=== PATIENT | female | born 1945 | race Caucasian/White ===

== ENCOUNTER 2017-12-23 05:45 | Inpatient (IN) | payer OTHER, MEDICAID ==
[~2017-12-23] VITALS: Ht 165.1 cm; Wt 104.3 kg
--- NOTE | ~2017-12-23 | HEMODYNAMI ---
PATIENT:ELFEGO MONTEMAYOR MEDICAL RECORD: [id number] : 45 [id number] ADMISSION DATE: 12/23/17 Generatedon:12/30/201716:13 Patient name: ELFEGO MONTEMAYOR Patient #: [id number] SSN: : 1945 Date of study: 12/30/2017 Page: Of Hemodynamic Procedure Report Patient Data Patient Demographics Procedure consent was obtained First Name: ELFEGO Gender: Female Last Name: SIM : 1945 Middle Initial: S Age: 72 year(s) Patient #: [id number] Race: Unknown Additional ID: [id number] Contact details [address]: [address] [place] [address] State: [place] City: [place] Zip code: [address] Admission Admission Data Admission Date: 12/23/2017 Admission Time: 15:44 Room #: D.2212 Lab Results Lab Result Date: 12/30/2017 Lab Result Time: 0:00 Biochemistry Name Units Result Min Max BUN mg/dl 17 --(---*)-- 7 18 Creatinine mg/dl 0.8 --(-*--)-- 0.6 1.3 CBC Name Units Result Min Max Hemoglobin g/dl 9.5 *-(----)-- 13.5 17.5 Procedure Procedure Types Cath Procedure Diagnostic Procedure Sedation Charges Moderate Sedation up to 15 minutes [facility] w/Coronaries w/Grafts PCI Procedure Coronary Stent Coronary Stent Initial Procedure Description Procedure Date Procedure Date: 12/30/2017 Procedure Start Time: 15:43 Procedure End Time: 16:10 Procedure Staff Name Function Connor Wang MD Performing Physician Marcela Wyman RT Monitor Prasanna Caldera RN Nurse Rebecca Duran RT Scrub Procedure Data Cath Procedure Fluoroscopy Diagnostic fluoroscopy Total fluoroscopy Time: 5.5 time: 5.5 min min Diagnostic fluoroscopy Total fluoroscopy dose: dose: 1107 mGy 1107 mGy Contrast Material Contrast Material Type Amount (ml) Isovue 300 115 Entry Location Entry Primary Successful Side Size Upsize Upsize Entry Closure Succes sful Closure Location (Fr) 1 (Fr) 2 (Fr) Remarks Device Remarks Femoral Right 5 Fr 6 Fr artery Short Estimated blood loss: 5 ml Diagnostic catheters Device Type Used For End Catheter Placement MULTIPACK Pigtail 5 Fr LV Angiography catheter MULTIPACK JL 4.0 5Fr Left Coronary catheter Angiography MULTIPACK 3DRC 5Fr Right Coronary catheter Angiography DIAGNOSTIC AR 2 MOD 5 Fr Multi-vessel catheter ([id number]) Angiography Procedure Complications No complications Procedure Medications Medication Administration Route Dosage Oxygen NC 3 l/min Lidocaine 2% added to field 20 Heparin Flush Bag added to field 2 bags (1000units/500ml NS) 0.9% NaCl I.V. 100 ml/hr Versed I.V. 1 mg Fentanyl I.V. 50 mcg Versed I.V. 1 mg Fentanyl I.V. 50 mcg Heparin Bolus I.V. 4000 units Integrilin (Bolus I.V. 9.5 ml 2mg/ml) Plavix P.O. 600 mg Hemodynamics Rest HGB: 9.5 (g/dl) Heart Rate: 117 (bpm) Snapshots Pre Cath Intra NCS Post Cath Vital Signs Time Heart Resp SPO2 etCO2 NIBP (mmHg) Rhythm Pain Sedation Rate (ipm) (%) (mmHg) Status Level (bpm) 15:34:45 93 30 96 0 189/128(138) NSR 0 (11) 10(A) , No pain 15:40:13 104 17 93 0 178/131(165) NSR 0 (11) 10(A) , No pain 15:45:37 77 19 92 0 158/100(126) NSR 0 (11) 10(A) , No pain 15:49:44 114 18 94 0 160/119(133) NSR 0 (11) 10(A) , No pain 15:53:54 90 19 92 0 170/106(141) NSR 0 (11) 10(A) , No pain 15:58:06 83 19 93 0 169/100(133) NSR 0 (11) 10(A) , No pain 16:02:18 86 19 94 0 166/98(122) NSR 0 (11) 10(A) , No pain 16:08:39 116 21 92 0 Time NSR 0 (11) 10(A) Exceeded , No pain Medications Time Medication Route Dose Verified Delivered Reason Notes Effectiveness by by 15:36:05 Oxygen NC 3 Connor Buffie used for l/min Felipe Caldera RN procedure 15:36:13 Lidocaine 2% added 20ml Connor Connor for local to vial Felipe Wang MD anesthetic field 15:36:21 Heparin Flush added 2 Connor Connor used for Bag to bags Felipe Wang MD procedure (1000units/500ml field NS) 15:37:08 0.9% NaCl I.V. 100 Connor Buffie Per physician ml/hr Felipe Caldera RN 15:41:02 Versed I.V. 1 mg Connor Chanie for sedation Felipe Caldera RN 15:41:08 Fentanyl I.V. 50 Connor Buffie for sedation mcg Felipe Caldera RN 15:43:42 Versed I.V. 1 mg Connor Buffie for sedation Felipe Caledra RN 15:43:46 Fentanyl I.V. 50 Connor Chanie for sedation mcg Felipe Caldera RN 15:56:06 Heparin Bolus I.V. 4000 Connor Chanie for verifi ed units Felipe Caldera RN anticoagulation with dr wang 15:57:52 Integrilin I.V. 9.5 Connor Chanie for wasted (Bolus 2mg/ml) ml Felipe Caldera RN antiplatelet 0.5 ml therapy of vial 16:07:29 Plavix P.O. 600 Connor Chanie for mg Felipe Caldera RN antiplatelet therapy Procedure Log Time Note 15:25:33 Diagnostic Cath status Elective 15:25:35 Marcela Wyman RT(R) sent for patient. Start room use. 15:25:37 Time tracking: Regular hours 15:25:41 Plan of Care:Hemodynamics will remain stable., Cardiac rhythm will remain stable., Comfort level will be maintained., Respiratory function will remain adequate., Patient/ family verbilizes understanding of procedure., Procedure tolerated without complication., Recovers from procedure without complications.. 15:25:50 Patient received from Med/Surg to CCL 2 Alert and oriented. Tansferred to table in Supine position. 15:25:51 Warm blankets applied, and renny hugger turned on for patient comfort. 15:25:53 Correct patient and procedure confirmed by team. 15:25:55 Signed procedure consent form obtained from patient. 15:26:04 H&P Date Dictated: 12/29/2017 Within 30 days and on chart.. 15:26:06 Pre-procedure instructions explained to patient. 15:26:08 Family in patients room. 15:26:10 Patient NPO since Midnight. 15:26:14 Is the patient allergic to Iodine/contrast media? No. 15:26:18 Was the patient premedicated? Yes 15:26:37 Is patient on blood thinner?Yes 15::42 ACC The patient was administered the following blood thiners within the last 24 hours: Eliquis 15:26:45 Patient diabetic? Yes. 15:26:46 If diabetic: On Metformin? No 15::54 Snore? Yes 15::55 Sleep apnea? Yes 15:27:00 Airway obstruction? No ? 15:27:05 Dentures? Yes tight 15:27:08 Patient pain scale 0/10 ?. 15:27:16 IV patent on arrival in left forearm with 0.9% NaCl at O. 15:27:27 Lab results completed and on chart. 15:27:33 Right groin area was prepped with chlora-prep and draped in sterile fashion 15:27:35 Alarms reviewed by R. N. 15:27:35 Sharps counted by scrub and verified by R.N. 15:27:38 Physician paged 15:27:46 ECG and BP/O2 sat monitors applied to patient. 15:33:40 Vital chart was started 15:33:41 Baseline sample Acquired. 15:33:48 Rhythm: atrial fibrillation 15:33:50 Full Disclosure recording started 15:33:51 Pre-op teaching completed and patient verbalized understanding. 15:33:59 Deviated septum? No 15:34:00 Opens mouth fully? Yes 15:34:00 Sticks out tongue? Yes 15:34:20 Lab Result : BUN 17 mg/dl 15:34:20 Lab Result : Creatinine 0.8 mg/dl 15:34:20 Lab Result : Hemoglobin 9.5 g/dl 15:36:05 Oxygen 3 l/min NC was administered by Prasanna Caldera RN; used for procedure; 15:36:13 Lidocaine 2% 20ml vial added to field was administered by Connor Wang MD; for local anesthetic; 15:36:21 Heparin Flush Bag (1000units/500ml NS) 2 bags added to field was administered by Connor Wang MD; used for procedure; 15:37:08 0.9% NaCl 100 ml/hr I.V. was administered by Prasanna Caldera RN; Per physician; 15:40:38 Physician arrived 15:40:39 --------ALL STOP TIME OUT------ 15:40:39 Final Timeout: patient, procedure, and site verified with staff and physician. All members of the team are in agreement. 15:40:42 Right groin site verified by team. 15:40:44 Physical assessment completed. ASA score P 2 - A patient with mild systemic disease as per Connor Wang MD. 15:40:48 Sedation plan: IV Moderate Sedation Medication:Versed, Fentanyl 15:40:57 Use device set Femoral Dx 15:40:58 ACIST Syringe (53650) opened to sterile field. 15:40:58 Bag Decanter (2002S) opened to sterile field. 15:40:58 Medline Cath Pack ([id number]) opened to sterile field. 15:40:59 SHEATH 5FR Mcdonough (BCH304) opened to sterile field. 15:40:59 DIAGNOSTIC WIRE .035 260cm J wire (032130) opened to sterile field. 15:41:01 ACIST Hand Control (92017) opened to sterile field. 15:41:01 ACIST Manifold (77969) opened to sterile field. 15:41:02 Versed 1 mg I.V. was administered by Prasanna Caldera RN; for sedation; 15:41:02 DIAGNOSTIC Multipack 5Fr catheter set (UW9927) opened to sterile field. 15:41:02 Tegaderm 4 x 4 (1626W) opened to sterile field. 15:41:08 Fentanyl 50 mcg I.V. was administered by Prasanna Caldera RN; for sedation; 15:41:22 Quick Combo opened to sterile field. 15:43:24 Quick combo pads placed on patients chest and back. 15:43:32 Procedure started. 15:43:42 Versed 1 mg I.V. was administered by Prasanna Caldera RN; for sedation; 15:43:46 Fentanyl 50 mcg I.V. was administered by Prasanna Caldera RN; for sedation; 15:43:47 Local anesthetic to right femoral artery with Lidocaine 2% by Connor Wang MD.INITIAL ACCESS ONLY 15:46:05 A 5 Fr sheath was inserted into the Right Femoral artery 15:46:18 A MULTIPACK Pigtail 5 Fr catheter was advanced over the wire and used for LV Angiography. 15:47:58 unable to cross artificial valve; catheter removed 15:48:04 A MULTIPACK JL 4.0 5Fr catheter was advanced over the wire and used for Left Coronary Angiography. 15:48:50 LCA angiography performed. 15:48:53 Injector settings: Ml/sec: 3, Volume: 6, 15:49:31 Catheter removed. 15:49:37 A MULTIPACK 3DRC 5Fr catheter was advanced over the wire and used for Right Coronary Angiography. 15:50:32 GASTON angiography performed. 15:51:03 SHEATH 6FR Mcdonough (SDH519) opened to sterile field. 15:51:03 INFLATOR Merit BasixCompak (XF5995) opened to sterile field. 15:51:04 CHOICE PT Extra Support 182cm wire ([id number]) opened to sterile field. 15:51:59 Injector settings: Ml/sec: 3, Volume: 6, 15:54:14 Catheter removed. 15:54:19 A DIAGNOSTIC AR 2 MOD 5 Fr catheter (359373E) was advanced over the wire and used for Multi-vessel Angiography. 15:54:52 SVG to Diag angiography performed. 15:54:58 SVG to RCA angiography performed. 15:55:02 Catheter removed. 15:55:04 Proceeding to intervention. 15:55:18 Sheath upsized to a 6 Fr Short. 15:55:47 GUIDE 6FR XBLAD 4.0 catheter ([id number]) opened to sterile field. 15:56:00 6 Fr xblad 4 guide catheter was inserted over the wire 15:56:05 choice pt wire advanced. 15:56:06 Heparin Bolus 4000 units I.V. was administered by Prasanna Caldera RN; for anticoagulation; verified with dr wang 15:57:52 Integrilin (Bolus 2mg/ml) 9.5 ml I.V. was administered by Prasanna Caldera RN; for antiplatelet therapy; wasted 0.5 ml of vial 15:58:24 Wire advanced across lesion. 15:59:48 Inflation number: 1 A INTEGRITY RX 4.0 x 09 stent ([id number]) was prepped and advanced across the Prox CX, then inflated to 13 KARYN for 0:10 (min:sec). 16:00:32 Stent catheter was removed intact over wire. 16:00:32 Wire removed. 16:00:32 Guide catheter removed. 16:00:49 EXOSEAL 6Fr (EX600) opened to sterile field. 16:05:17 Procedure ended.(Physican Out) 16:07:29 Plavix 600 mg P.O. was administered by Prasanna Caldera RN; for antiplatelet therapy; 16:07:48 Fluoroscopy time 05.50 minutes. 16:07:53 Fluoroscopy dose: 1107 mGy 16:07:53 Flurop Dose total: 1107 16:07:57 Contrast amount:Isovue 300 115ml. 16:07:59 Sharps counted by scrub and verified by R.N. 16:08:01 Insertion/operative site no bleeding no hematoma. 16:08:04 Post-op/insertion site Right Femoral artery dressed using a 4 x 4 and Tegaderm. 16:08:07 Post right femoral artery:stable 16:08:10 Post Procedure Pulses reassessed and unchanged 16:08:12 Post procedure rhythm: unchanged. 16:08:15 Estimated blood loss: 5 ml 16:08:16 Post procedure instruction explained to patient.Patient verbalizes understanding. 16:08:16 Patient needs reinforcement of post procedure teaching. 16:08:38 Procedure type changed to Cath procedure, Diagnostic procedure, Sedation Charges, Moderate Sedation up to 15 minutes, LHC, LHC w/Coronaries w/Grafts, PCI procedure, Coronary Stent, Coronary Stent Initial 16:09:26 Procedure and supply charges have been captured, reviewed, submitted and are correct. 16:09:30 Procedure Complication : No complications 16:09:57 Vital chart was stopped 16:09:58 See physician's report for complete and final results. 16:10:22 Report given to [facility]. 16::30 Patient transfered to [facility] with Stretcher. 16::32 Procedure ended. 16::32 Full Disclosure recording stopped 16:10:39 ACC-PCI Only Patient was given prescriptions, or instructed by Connor Wang MD to start/continue the following medications upon discharge: Plavix 16:10:41 End room use (Document Last) Intervention Summary Intervention Notes Time ActionType Lesion and Equipment Action# Pressure Duration Attributes Used 15:59:48 Inflate Prox CX INTEGRITY RX 1 13 00:10 balloon 4.0 x 09 stent ([id number]) Device Usage Item Name Manufacture Quantity Catalog Number Hospital Part Current Mini mal Lot# / Charge Number Stock Stock Serial# Code ACIST Acist 1 09839 731414 104213 938743 20 Syringe Medical (50197) Systems Inc Bag Decanter Microtek 1 2001S 266816 52365 646919 5 (2001S) Medical Inc. Medline Cath Cardinal 1 [id number] 583822 07669 948235 5 Pack Health ([id number]) SHEATH 5FR Terumo 1 VLX129 378093 129761 007993 40 Mcdonough (FUR366) DIAGNOSTIC St Shaq 1 514337 648965 594040 764130 30 WIRE .035 260cm J wire (910557) ACIST Hand Acist 1 46901 042999 333387 137894 5 Control Medical (05393) Systems Inc ACIST Acist 1 42111 622100 403272 684540 5 Manifold Medical (98897) Systems Inc DIAGNOSTIC Cardinal 1 WF4011 781425 80268 325704 30 Multipack Health 5Fr catheter set (PJ0405) Tegaderm 4 x 3M 1 1626W 628847 474385 947628 5 4 (1626W) Quick Combo Edge Systems 1 43983-983139 881720 204634 462220 5 MULTIPACK Cardinal 1 914669 5 Pigtail 5 Fr Health catheter MULTIPACK JL Cardinal 1 016825 5 4.0 5Fr Health catheter MULTIPACK Cardinal 1 264046 5 3DRC 5Fr Health catheter SHEATH 6FR Terumo 1 YQJ153 628448 246670 345556 40 Mcdonough (JHB785) INFLATOR Merit 1 JK1311 355695 771288 885365 15 TOSA (Tests On Software Applications) Medical BasixCompak (BG3024) CHOICE PT Chester 1 [id number] 844299 225814 481690 5 Extra Scientific Support 182cm wire (3051287Y0) DIAGNOSTIC Cardinal 1 [id number] 466241 318609 636960 20 AR 2 MOD 5 Health Fr catheter (828634G) GUIDE 6FR Cardinal 1 [id number] 718139 064306 632051 3 XBLAD 4.0 Health catheter (76028955) INTEGRITY RX Medtronic 1 [id number] 527965 767568 573955 5 [id number] 4.0 x 09 stent ([id number]) EXOSEAL 6Fr Cardinal 1 EX600 764165 689792 767591 10 (EX600) Health Signature Audit [place] Stage Time Signature Unsigned Intra-Procedure 12/30/2017 Marcela Wyman 4:12:59 PM RT(R) Signatures Monitor : Marcela Wyman RT Signature : Date : Time : [place] [id number] [facility] [address]
--- NOTE | ~2017-12-23 | HEMODYNAMI ---
PATIENT:ELFEGO MONTEMAYOR MEDICAL RECORD: [id number] : 45 LOCATION:[facility] D.2110 ADMISSION DATE: 12/23/17 Generatedon:12/31/20179:36 Patient name: ELFEGO MONTEMAYOR Patient #: [id number] SSN: : 1945 Date of study: 12/31/2017 Page: Of Hemodynamic Procedure Report Patient Data Patient Demographics Procedure consent was obtained First Name: ELFEGO Gender: Female Last Name: SIM : 1945 Middle Initial: S Age: 72 year(s) Patient #: [id number] Race: Unknown Additional ID: [id number] Contact details [address]: [address] [place] [address] State: [place] City: [place] Zip code: [address] Past Medical History Allergies Allergen Reaction Date Comments Reported Other allergy 12/31/2017 SULFA, CODEINE Admission Admission Data Admission Date: 12/23/2017 Admission Time: 15:44 Room #: D.2110 Lab Results Lab Result Date: 12/31/2017 Lab Result Time: 0:00 Biochemistry Name Units Result Min Max BUN mg/dl 14 --(--*-)-- 7 18 Creatinine mg/dl 0.7 --(*---)-- 0.6 1.3 CBC Name Units Result Min Max Hemoglobin g/dl 9.9 *-(----)-- 13.5 17.5 Platelets 10^3/l 277 --(--*-)-- 130 400 Procedure Procedure Types Cath Procedure Diagnostic Procedure Cardioversion External PCI Procedure AMI/SVG/OVERHEAD IRRIGATOR PTCA or Stent SVG-BMS/SACHIN Initial Procedure Description Procedure Date Procedure Date: 12/31/2017 Procedure Start Time: 9:16 Procedure End Time: 9:35 Procedure Staff Name Function Connor Wang MD Performing Physician Lizzie Luke RT Monitor Alma Rosa Soriano RT Scrub Prasanna Caldera RN Nurse Doug Kline MD Additional personnel Procedure Data Cath Procedure Fluoroscopy Diagnostic fluoroscopy Total fluoroscopy Time: 2.6 time: 2.6 min min Diagnostic fluoroscopy Total fluoroscopy dose: 263 dose: 263 mGy mGy Contrast Material Contrast Material Type Amount (ml) Isovue 300 60 Entry Location Entry Primary Successful Side Size Upsize Upsize Entry Closure Succes sful Closure Location (Fr) 1 (Fr) 2 (Fr) Remarks Device Remarks Femoral Left 6 Fr Exoseal artery Short Estimated blood loss: 10 ml Procedure Complications No complications Procedure Medications Medication Administration Route Dosage Oxygen NC 2 l/min Lidocaine 2% added to field 20 Heparin Flush Bag added to field 2 bags (1000units/500ml NS) 0.9% NaCl I.V. 100 ml/hr Versed I.V. 0.5 mg Fentanyl I.V. 50 mcg Versed I.V. 0.5 mg Fentanyl I.V. 50 mcg Heparin Bolus I.V. 4000 units Hemodynamics Rest HGB: 9.9 (g/dl) Heart Rate: 126 (bpm) Snapshots Pre Cath Intra NCS Post Cath Vital Signs Time Heart Resp SPO2 etCO2 NIBP (mmHg) Rhythm Pain Sedation Rate (ipm) (%) (mmHg) Status Level (bpm) 8:54:26 98 28 92 209/131(161) A-Fib 0 (11) 10(A) , No pain 8:59:08 101 22 94 200/121(148) A-Fib 0 (11) 10(A) , No pain 9:03:45 85 23 94 185/119(166) A-Fib 0 (11) 10(A) , No pain 9:08:25 79 16 92 17.9 185/109(145) A-Fib 0 (11) 9(A) , No pain 9:10:10 78 16 95 0 183/109(136) A-Fib 0 (11) 9(A) , No pain 9:14:50 79 15 98 0 179/86(123) Paced 0 (11) 9(A) , No pain 9:19:31 61 13 96 0 157/84(115) Paced 0 (11) 9(A) , No pain 9:24:08 60 16 95 0 160/86(129) Paced 0 (11) 10(A) , No pain 9:28:46 65 13 93 0 171/81(124) Paced 0 (11) 10(A) , No pain 9:33:27 64 14 0 175/82(149) Paced 0 (11) 10(A) , No pain Medications Time Medication Route Dose Verified Delivered Reason Notes Effectiveness by by 9:03:03 Oxygen NC 2 Connor Rocioie used for l/min Felipe Caldera RN procedure 9:03:13 Lidocaine 2% added 20ml Connormorena Ryan for local to vial Felipe Wang MD anesthetic field 9:03:19 Heparin Flush added 2 Connormorena Ryan used for Bag to bags Felipe Wang MD procedure (1000units/500ml field NS) 9:03:28 0.9% NaCl I.V. 100 Connor Mims Per physician ml/hr Felipe Caldera RN 9:15:16 Versed I.V. 0.5 oCnnor Cahnie for sedation mg Felipe Caldera RN 9:15:21 Fentanyl I.V. 50 Connor Buffie for sedation mcg Felipe Caldera RN 9:17:25 Versed I.V. 0.5 Connor Chanie for sedation mg Felipe Caldera RN 9:17:29 Fentanyl I.V. 50 Connor Mims for sedation mcg Felipe Caldera RN 9:18:34 Heparin Bolus I.V. 4000 Connormorena Chanie for units Felipe Caldera RN anticoagulation Procedure Log Time Note 8:33:53 Prasanna Caldera RN sent for patient. Start room use. 8:33:54 Time tracking: Regular hours 8:33:57 Plan of Care:Hemodynamics will remain stable., Cardiac rhythm will remain stable., Comfort level will be maintained., Respiratory function will remain adequate., Patient/ family verbilizes understanding of procedure., Procedure tolerated without complication., Recovers from procedure without complications.. 8:33:59 Signed procedure consent form obtained from patient. 8:34:11 H&P Date Dictated: 12/23/2017 Within 30 days and on chart.. 8:37:31 Patient allergic to Other allergySULFA, CODEINE 8:38:14 Lab Result : BUN 14 mg/dl 8:38:14 Lab Result : Creatinine 0.7 mg/dl 8:38:14 Lab Result : Hemoglobin 9.9 g/dl 8:38:14 Lab Result : Platelets 277 10^3/l 8:43:00 Patient received from PCU to CCL 1 Alert and oriented. Tansferred to table in Supine position. 8:52:56 Vital chart was started 8:56:07 Warm blankets applied, and renny hugger turned on for patient comfort. 8:56:08 Correct patient and procedure confirmed by team. 8:56:10 Baseline sample Acquired. 8:56:16 Rhythm: atrial fibrillation 8:56:18 Full Disclosure recording started 8:56:19 Pre-procedure instructions explained to patient. 8:56:19 Pre-op teaching completed and patient verbalized understanding. 8:56:20 Family in patients room. 8:56:21 Patient NPO since Midnight. 8:56:25 Is the patient allergic to Iodine/contrast media? No. 8:56:28 Is patient on blood thinner?Yes 8:56:31 ACC The patient was administered the following blood thiners within the last 24 hours: ACCPlavix 8:56:32 Patient diabetic? Yes. 8:56:33 If diabetic: On Metformin? No 8:56:37 Previous problem with sedation/anesthesia? No ? 8:56:38 Snore? Yes 8:56:39 Sleep apnea? Yes 8:56:40 Deviated septum? No 8:56:42 Opens mouth fully? Yes 8:56:43 Sticks out tongue? Yes 8:59:06 Airway obstruction? No ? 8:59:10 Dentures? Yes OUT 8:59:14 Pre procedure: left dorsailis pedis pulse 1+ Palpable, but thready & weak; easily obliterated 8:59:18 Patient pain scale 6/10 ?. 8:59:29 IV patent on arrival in left forearm with 0.9% NaCl at KVO. 8:59:31 Lab results completed and on chart. 8:59:34 Left groin area was prepped with chlora-prep and draped in sterile fashion 8:59:35 Alarms reviewed by R. N. 8:59:35 Sharps counted by scrub and verified by R.N. 9:01:00 Use device set CATH PACK 9:01:03 Use device set TAUTH PCI 9:01:04 ACIST Syringe (12611) opened to sterile field. 9:01:04 ACIST Hand Control (37364) opened to sterile field. 9:01:05 ACIST Manifold (57548) opened to sterile field. 9:01:05 Medline Cath Pack ([id number]) opened to sterile field. 9:01:06 Bag Decanter (2002S) opened to sterile field. 9:01:07 DIAGNOSTIC WIRE .035 260cm J wire (837437) opened to sterile field. 9:01:08 INFLATOR Merit Stephaniepak (AR9474) opened to sterile field. 9:01:08 SHEATH 6FR Oreana (UEB829) opened to sterile field. 9::18 Quick Combo opened to sterile field. 9:03:03 Oxygen 2 l/min NC was administered by Prasanna Caldera RN; used for procedure; 9:03:13 Lidocaine 2% 20ml vial added to field was administered by Connor Wang MD; for local anesthetic; 9::19 Heparin Flush Bag (1000units/500ml NS) 2 bags added to field was administered by Connor Wang MD; used for procedure; 9::28 0.9% NaCl 100 ml/hr I.V. was administered by Prasanna Caldera RN; Per physician; 9:04:06 --------ALL STOP TIME OUT------ 9:04:06 Final Timeout: patient, procedure, and site verified with staff and physician. All members of the team are in agreement. 9:04:09 Left groin site verified by team. 9:04:13 Physical assessment completed. ASA score P 2 - A patient with mild systemic disease as per Connor Wang MD. 9:04:16 Sedation plan: TIVA Medication:Propofol 9:04:18 Doug Kline MD present and monitoring patient for TIVA. 9:05:00 Procedure started. 9:06:43 Quick combo pads placed on patients chest and back. 9:06:46 Defibrillator synced and charged to 275 Joules. 9:07:02 Shock delivered. 9:07:33 Patient cardioverted to paced. 9:08:35 WILL PROCEED WITH HEART CATH 9:08:41 Zero performed for pressure channel P1 9:08:55 Zero performed for pressure channel P1 9:10:40 GUIDE 6FR AR 1.0 catheter ([id number]) opened to sterile field. 9:11:20 CHOICE PT Extra Support 182cm wire ([id number]) opened to sterile field. 9:15:16 Versed 0.5 mg I.V. was administered by Prasanna Caldera RN; for sedation; 9:15:21 Fentanyl 50 mcg I.V. was administered by Prasanna Caldera RN; for sedation; 9:16:06 LEFT HEART CATH START 9:16:26 Local anesthetic to left femerol artery with Lidocaine 2% by Connor Wang MD.INITIAL ACCESS ONLY 9:17:22 A 6 Fr Short sheath was inserted into the Left Femoral artery 9:17:25 Versed 0.5 mg I.V. was administered by Prasanna Caldera RN; for sedation; 9:17:29 Fentanyl 50 mcg I.V. was administered by Prasanna Caldera RN; for sedation; 9:17:42 6 Fr AR 1 guide catheter was inserted over the wire 9:18:14 CHOICE 182 wire advanced. 9:18:34 Heparin Bolus 4000 units I.V. was administered by Prasanna Caldera RN; for anticoagulation; 9:19:08 Wire advanced across lesion. 9:21:22 Inflation Number: 1 A INTEGRITY RX 3.0 x 15 stent ([id number]) was prepped and advanced across the Aorta Left -> Mid LAD. The stent was deployed at 15 KARYN for 0:10 (min:sec). 9:21:51 Stent catheter was removed intact over wire. 9:21:52 Wire removed. 9:21:52 Guide catheter removed. 9:21:55 EXOSEAL 6Fr (EX600) opened to sterile field. 9:22:07 Sheath removed intact; hemostasis achieved with Exoseal to the Left Femoral artery. 9:22:47 Procedure ended.(Physican Out) 9:25:34 Fluoroscopy time 02.60 minutes. 9::48 Flurop Dose total: 263 9:25:48 Fluoroscopy dose: 263 mGy 9:25:51 Contrast amount:Isovue 300 60ml. 9:26:14 Post-procedure physical assessment completed. ASA score P 2 - A patient with mild systemic disease as per Connor Wang MD. 9:26:24 Post procedure rhythm: sinus rhythm 9::27 Estimated blood loss: 10 ml 9::29 Post procedure instruction explained to patient.Patient verbalizes understanding. 9::29 Patient needs reinforcement of post procedure teaching. 9:32:27 FEMSTOP Gold ([id number]) opened to sterile field. 9:32:43 Femstop placed over the left femerol artery at 214 mmHg. Hemostasis achieved. 9:32:46 Post Procedure Pulses reassessed and unchanged 9:32:51 Post procedure: left dorsailis pedis pulse 1+ Palpable, but thready & weak; easily obliterated. 9:34:47 PERCUTANEOUS ENTRY 19GA needle opened to sterile field. 9:35:39 Procedure and supply charges have been captured, reviewed, submitted and are correct. 9:35:42 Procedure Complication : No complications 9:35:44 Vital chart was stopped 9:35:45 See physician's report for complete and final results. 9:35:48 Report given to PCU. 9:35:53 Patient transfered to PCU with Bed. 9:35:55 Procedure ended. 9:35:55 Full Disclosure recording stopped 9:36:01 End room use (Document Last) Intervention Summary Intervention Notes Time ActionType Lesion and Equipment Action# Pressure Duration Attributes Used 9:21:22 Place stent Aorta Left INTEGRITY RX 1 15 00:10 -> Mid LAD 3.0 x 15 stent ([id number]) Device Usage Item Name Manufacture Quantity Catalog Number Hospital Part Current Mini mal Lot# / Charge Number Stock Stock Serial# Code ACIST Acist 1 50901 484761 318321 603931 20 Syringe Medical (73971) Systems Inc ACIST Hand Acist 1 41460 905143 129088 758397 5 Control Medical (15797) Systems Inc ACIST Acist 1 43164 174758 001515 400922 5 Manifold Medical (98325) Systems Inc Medline Cath Cardinal 1 [id number] 360687 95222 980128 5 Pack Health ([id number]) Bag Decanter Microtek 1 2001S 831895 82779 853760 5 (2001S) Medical Inc. DIAGNOSTIC St Shaq 1 469667 019924 892551 662340 30 WIRE .035 260cm J wire (238042) INFLATOR ShieldEffect 1 KB0334 366753 034383 702952 15 CloudGenix BasixCompak (EJ8083) SHEATH 6FR Terumo 1 PAC033 414804 997902 328389 40 Oreana (ENS662) Quick Combo Netfective Technology Systems 1 22027-600063 943833 054189 501858 5 GUIDE 6FR AR Medtronic 1 [id number] 881255 91531 462504 1 1.0 catheter (LT8DA21) CHOICE PT [place] 1 [id number] 877251 815667 631654 5 Extra Scientific Support 182cm wire ([id number]) INTEGRITY RX Medtronic 1 [id number] 409136 002799 564911 5 [id number] 3.0 x 15 stent ([id number]) EXOSEAL 6Fr Cardinal 1 EX600 267308 844284 597198 10 (EX600) Health FEMSTOP Gold St Shaq 1 H54258 957722 635904 798170 5 (V38122) PERCUTANEOUS [place] [facility] 1 J75092 761607 592173 5 ENTRY 19GA needle Signature Audit [place] Stage Time Signature Unsigned Intra-Procedure 12/31/2017 Lizzie Luke 9:36:33 AM RT(R) Signatures Monitor : Lizzie Luke Signature : RT Date : Time : [address] [address]
--- NOTE | ~2017-12-23 | CN ---
PATIENT NAME:ELFEGO MONTEMAYOR MEDICAL RECORD: [id number] : 45 LOCATION:D.M2 D.2110 ADMIT DATE: 12/23/17 ACCOUNT: [id number] CONSULTING PHYSICIAN: LUCIA ELLIS MD REFERRING PHYSICIAN: LEONIDAS BYRD MD DATE OF CONSULTATION: 12/29/2017 DIAGNOSES: 1. New onset atrial fibrillation. 2. Past history of atrial fibrillation. 3. Status post cardioversion times 2. 4. Status post ablation times 2. 5. Aortic valve replacement tissue. 6. Coronary artery disease. 7. Status post coronary bypass graft surgery. 8. Unstable angina. 9. Anemia. 10. Eliquis anticoagulation. 11. Hypertension. 12. Hyperlipidemia. 13. Chronic obstructive pulmonary disease. HISTORY OF PRESENT ILLNESS: Mrs. Montemayor presents with generalized weakness. She is status post knee replacement in [facility] last week. She cannot take care of herself at home. She has an extensive cardiac history. She was initially in sinus rhythm. She is now reverted to atrial fibrillation. She was previously on Cordarone, which has not been continued here. She as well is on valsartan, carvedilol, Zetia and Eliquis. These have been continued. Her cardiac history is that of a coronary bypass graft surgery, valve replacement with a tissue prosthesis and pacemaker placed 2015. She had an ablation in 2016 secondary to atrial fibrillation as well as cardioversion. She then had recurrent atrial fibrillation with recurrent ablation and cardioversion last year. She has been having chest pain and chest discomfort. She has ST-T changes with the rapid ventricular response. PHYSICAL EXAMINATION: GENERAL APPEARANCE: Well-nourished, well-developed, appears stated age. Level of distress, comfortable. PSYCHIATRIC: Mental status, alert, normal affect. Orientation, oriented to time, place and person. EYES: Lids and conjunctiva, noninjected. No discharge, no pallor. ENT: Lips, teeth, gums, normal dentition. Oropharynx, no cyanosis, no pallor. NECK: Carotid arteries, bilateral normal upstroke, no bruits, no thrills. JUGULAR VEINS: No jugular venous pressure or distention. CERVICAL LYMPH NODES: Nontender, nonenlarged. THYROID: Not enlarged. Nontender. No nodules. LUNGS: Respiratory effort, unlabored. CHEST: Normal curvature. No thoracic deformity. No chest wall tenderness. Percussion, resonant. Auscultation, clear. No wheezes, no rales, no rhonchi. CARDIOVASCULAR: Precordial exam, nondisplaced. No heaves or pericardial thrills. Rate and rhythm, regular. Heart sounds, normal S1, normal S2. No S3, no gallop, no rub. Systolic murmur, not heard. Diastolic murmur, not heard. EXTREMITIES: No cyanosis, no edema. Peripheral pulses, full and equal in all extremities, except as noted. No bruits appreciated. ABDOMEN: Soft, nondistended. Normal aorta. No bruit. Nontender. No masses. CONSULT REPORT [id number] ELFEGO MONTEMAYOR Liver, nontender, no hepatomegaly. Spleen, nontender, no splenomegaly. MUSCULOSKELETAL: No joint tenderness. No joint swelling. No erythema. NEUROLOGICAL: Normal gait, normal strength, normal tone. SKIN: Warm and dry. OVERALL IMPRESSION: 1. Atrial fibrillation with rapid ventricular response. We will start her on Cordarone at 400 mg b.i.d. We will also give her diltiazem bolus. Hopefully, this will slow her down and possibly convert her back to sinus rhythm. 2. Unstable angina, most likely she has recurrent hemodynamically significant coronary artery disease, especially with the ST-T changes with chest pain and the atrial fibrillation. We will proceed with coronary angiography in the near future. If she does not back to sinus rhythm, we will as well do cardioversion at that time. She is anticoagulated on Eliquis at this time. TRANSINT:[id number] Voice Confirmation ID: [id number] DOCUMENT ID: [id number] LUCIA ELLIS MD at 1153 CC: [id number] DICTATION DATE: 12/29/17 1101 INPATIENT NURSING AIDE: 12/29/17 1113 ADM IN [facility] [address] [place] [address]
--- NOTE | ~2017-12-23 | OP ---
PATIENT NAME: ELFEGO MONTEMAYOR MEDICAL RECORD: [id number] :45 LOCATION:D.M2 D.2110 ADMISSION DATE:12/23/17 SURGEON: LUCIA ELLIS MD DATE OF OPERATION: 12/30/2017 PROCEDURES: 1. PTCA stent, left circumflex. 2. Left heart catheterization. 3. Selective coronary angiography. 4. Vein graft angiography. 5. GASTON angiography. INDICATION: Angina and coronary artery disease. PROCEDURE IN DETAIL: After informed consent was obtained and after a detailed explanation of risks, benefits as well as alternative therapies, the patient elected to proceed with angiogram and angioplasty. The right femoral area was prepped and draped in normal sterile fashion. The right femoral artery was cannulated via modified Seldinger technique with placement of 6-Portuguese sheath. All catheters exchanged through this sheath. FINDINGS: Left ventriculogram was not performed secondary to inability to cross the prosthetic aortic valve. SELECTIVE CORONARY ANGIOGRAPHY: 1. Left main showed no significant angiographic disease. 2. Left anterior descending has 90% stenosis proximally. 3. GASTON to the LAD is widely patent. 4. Vein graft to the LAD diagonal is patent; however, the LAD diagonal has 80-90% stenosis after the patent vein graft. 5. The left circumflex does not appear to be grafted. There is 95% stenosis at the ostium. 6. Right coronary is grafted. Distal right coronary artery is widely patent as is the graft. PTCA STENT OF THE CIRCUMFLEX: The stent used was a 4.0 x 9 mm Integrity stent. Result was 0% residual stenosis. OVERALL IMPRESSION: Successful percutaneous transluminal coronary angioplasty stent of the left circumflex going from 95% initial stenosis to 0% residual. PLAN: PTCA stent of the LAD diagonal after the patent vein graft in the near future. TRANSINT:[id number] Voice Confirmation ID: [id number] DOCUMENT ID: [id number] LUCIA ELLIS MD at 1153 CC: [id number] DICTATION DATE: 12/30/17 1610 ALTERATION SPECIALIST: 12/30/17 1702 [place] [address]
--- NOTE | ~2017-12-23 | EC ---
PATIENT:ELFEGO MONTEMAYOR DATE OF SERVICE: 12/23/17 SEX: F MEDICAL RECORD: [id number] DATE OF : 45 LOCATION:D.MS [facility] AGE OF PATIENT: 72 ADMISSION DATE: 12/23/17 REFERRING PHYSICIAN: INTERPRETING PHYSICIAN: LUCIA WANG MD ECHOCARDIOGRAM REPORT ECHO CHARGES 4 ECHO COMPLETE CLINICAL DIAGNOSIS: A-FIB H/O AVR ECHOCARDIOGRAPHIC MEASUREMENTS (adult normal given) AC root (d.<3.7cm) 2.5 cm LV Septum d (<1.2 cm> 1.8 cm Valve Excursion 1.4 cm LV Septum (systole) 2.7 cm Left Atria (s.<4.0cm> 5.3 cm LVPW d(<1.2cm) 1.7 cm RV (d.<2.3cm) 2.8 cm LVPW (sytole) 2.6 cm LV diastole(<5.6CM) 4.5 cm MV E-F(>70mm/sec) cm LV systole 2.5 cm LVOT Diameter 1.6 cm MV exc.(>10mm) cm Est.ejection fraction (50-75%) % Pericardial Effusion N DOPPLER: LVIT cm/sec A cm/sec E 185 cm/sec LA cm/sec RVSP 22.3 mmHg LVOT 147 cm/sec AOP1/2T m/s Asc. Ao 159 cm/sec RVOT 100 cm/sec RA cm/sec PA 77.0 cm/sec AV Gradient Peak 10.1 mmHg AV Mean 5.4 mmHg AV Area 1.9 cm MV Gradient Peak 21.0 mmHg MV Mean 6.5 mmHg MV Area 0.8 cm COMMENTS: Intelligent Systems Engineer: Herlinda LOPEZOE Lag Screwer: 1 Dr. Wang TAPE# PACS DATE OF SERVICE: 12/29/2017 Echocardiogram FINDINGS: 1. Left ventricular chamber size is within normal limits. Left ventricular systolic function is mild to moderately reduced, ejection fraction in the 35% range. 2. Left atrium is enlarged at 5.3 cm. Right atrium and right ventricular chamber sizes are within normal limits. ECHOCARDIOGRAM REPORT [id number] ELFEGO MONTEMAYOR 3. Valvular structures: Aortic valve is replaced with a tissue prosthesis with normal structure and function in this position. 4. Doppler interrogation reveals only trace mitral regurgitation. No other valvular insufficiency or stenosis. Pulmonary systolic pressure is normal estimated at 22 mmHg. 5. No evidence of pericardial effusion or left ventricular thrombus. TRANSINT:[id number] Voice Confirmation ID: [id number] DOCUMENT ID: [id number] 01/04/2018 Edited to correct date of service, [email or web address]. LUCIA WANG MD at 1202 CC: [id number] DICTATION DATE: 12/30/17 1220 SNUFF GRINDER AND SCREENER: 12/30/17 1228 DIS IN 12/31/17 [address] [address] [place] [address]
--- NOTE | ~2017-12-23 | OP ---
PATIENT NAME: ELFGEO MONTEMAYOR MEDICAL RECORD: [id number] :45 LOCATION:D.M2 D.0 ADMISSION DATE:12/23/17 SURGEON: LUCIA ELLIS MD DATE OF OPERATION: 12/31/2017 PROCEDURES: 1. PTCA stent LAD diagonal through SVG. 2. Selective coronary and SVG angiography. 3. DC cardioversion. INDICATION: Unstable angina, atrial fibrillation. PROCEDURE IN DETAIL: After informed consent was obtained and after detailed explanation of risks, benefits as well as alternative therapies, the patient elected to proceed with angiogram and angioplasty. The left femoral area was prepped and draped in normal sterile fashion. Left femoral artery was cannulated via modified Seldinger technique with placement of 6-Marshallese sheath. All catheters exchanged through this sheath. FINDINGS: The DC cardioversion was performed per anesthesia. Continuous heart rate, O2 saturation, blood pressure monitoring all remained stable. She received 1 shock at 275 joules restoring sinus rhythm. PTCA stent of the diagonal through the vein graft, there is 90% stenosis of the LAD diagonal, patent vein graft was addressed with a 3.0 x 15 mm Integrity stent. Result was 0% residual stenosis. OVERALL IMPRESSION: Successful percutaneous transluminal coronary angioplasty stent of the LAD diagonal through the patent vein graft going from 90% initial stenosis to 0% residual. TRANSINT:[id number] Voice Confirmation ID: [id number] DOCUMENT ID: [id number] LUCIA ELLIS MD at 1153 CC: [id number] DICTATION DATE: 12/31/1729 MANAGER TITLE: 12/31/17 1020 [place] [address]
[2017-12-23 06:21] LABS: BASOPHILS 0.3 % (0-2); EOSINOPHILS 2.4 % (0-7); HEMATOCRIT 25.9 % (36.0-48.0); HEMOGLOBIN 8.4 g/dL (12-16); IMMATURE GRANULOCYTES 0.2 % (0-5); LYMPHOCYTES 11.3 % (15-50); MCH 29.3 pg (26.0-34.0); MCHC 32.4 g/dL (31.0-37.0); MCV 90.2 fL (80.0-100.0); MEAN PLATELET VOLUME 9.1 fL (7.4-10.4); MONOCYTES 11.6 % (2-11); NEUTROPHILS 74.2 % (40-80); PLATELET COUNT 148 10x3/uL (130-400); RBC 2.87 10x6/uL (4.00-5.40); RDW 14.1 % (11.5-14.5)
[2017-12-23 06:39] LABS: ALBUMIN 2.7 g/dL (3.4-5.0); ANION GAP 12.9 mmol/L (8-16); BILIRUBIN - TOTAL 0.89 mg/dL (0.2-1.3); CALCIUM 8.2 mg/dL (8.5-10.1); CARBON DIOXIDE 24.4 mmol/L (21.0-32.0); CREATININE - SERUM 2.2 mg/dL (0.6-1.3); POTASSIUM - SERUM 5.3 mmol/L (3.5-5.1)
[2017-12-23 06:57] LABS: AMORPHOUS SEDIMENT <1+ /lpf (NONE SEEN); APPEARANCE HAZY (CLEAR); BACTERIA MODERATE /hpf (NONE SEEN); BILIRUBIN NEGATIVE (NEGATIVE); COLOR DK YELLOW (YELLOW); GLUCOSE NEGATIVE (NEGATIVE); KETONE NEGATIVE (NEGATIVE); MUCUS <1+ /lpf (NONE SEEN); NITRITE NEGATIVE (NEGATIVE); PROTEIN TRACE mg/dL (NEGATIVE); RED CELLS - URINE RARE /hpf (0-5); SPECIFIC GRAVITY 1.025 (1.005-1.020); UROBILINOGEN NORMAL (NORMAL)
[2017-12-23 06:58] LABS: D-DIMER-QUANTITATIVE 1.17 ug/mLFEU (0.20-0.54)
[2017-12-23 06:59] LABS: APTT 36.7 SECONDS (22.8-39.4); INR 1.26 (0.85-1.17); PROTIME 15.4 SECONDS (11.6-15.0)
[2017-12-23 07:30] LABS: CKMB 4.1 U/L (0.0-3.6); CREATINE KINASE 196 UL (21-215); PRO BNP 7261 pg/mL (0-125)
[2017-12-23 07:32] LABS: TROPONIN-I 0.305 ng/mL (0.000-0.060)
[2017-12-23 11:33] LABS: UDS - AMPHET NEGATIVE QUAL (NEGATIVE); UDS - BARB NEGATIVE QUAL (NEGATIVE); UDS - BENZO POSITIVE QUAL (NEGATIVE); UDS - COCAINE NEGATIVE QUAL (NEGATIVE); UDS - OPIATE POSITIVE QUAL (NEGATIVE); UDS - PCP NEGATIVE QUAL (NEGATIVE); UDS - THC NEGATIVE QUAL (NEGATIVE)
[2017-12-23 14:10] VITALS: BP 103/37; BMI 38.3
[2017-12-23 16:22] VITALS: BP 100/36
[2017-12-23 22:13] VITALS: BP 114/46
[2017-12-24 01:16] VITALS: BP 109/42
[2017-12-24] MEDS ORDERED: LANTUS INSULIN10 ML SC (04:18)
[2017-12-24] MEDS ORDERED: ELIQUIS2.5 MG PO (04:19)
[2017-12-24] MEDS ORDERED: OXYCODONE/ACETAMINOP (04:20)
[2017-12-24] MEDS ORDERED: METOLAZONE5 MG PO (04:22)
[2017-12-24] MEDS ORDERED: PROAIR HFA8.5 GM INH (04:24)
[2017-12-24] MEDS ORDERED: EFFEXOR XR75 MG PO (04:25)
[2017-12-24] MEDS ORDERED: VICTOZA0.6 MG/0.1 SQ (04:25)
[2017-12-24] MEDS ORDERED: ZETIA10 MG PO (04:26)
[2017-12-24] MEDS ORDERED: MIRAPEX1 MG PO (04:27)
[2017-12-24] MEDS ORDERED: COREG12.5 MG PO (04:30)
[2017-12-24] MEDS ORDERED: BUSPAR10 MG PO (04:32)
[2017-12-24] MEDS ORDERED: PROTONIX40 MG PO (04:32)
[2017-12-24] MEDS ORDERED: DIOVAN80 MG PO (04:33)
[2017-12-24] MEDS ORDERED: ZANTAC300 MG PO (04:37)
[2017-12-24] MEDS ORDERED: NOVOLOG FLEXPEN INJ (04:37)
[2017-12-24] MEDS ORDERED: NEURONTIN 300300 MG PO (04:37)
[2017-12-24 05:14] VITALS: BP 102/48
[2017-12-24 05:15] LABS: BASOPHILS 0.3 % (0-2); EOSINOPHILS 2.8 % (0-7); HEMOGLOBIN 8.4 g/dL (12-16); IMMATURE GRANULOCYTES 0.3 % (0-5); LYMPHOCYTES 11.2 % (15-50); MCH 29.4 pg (26.0-34.0); MCHC 32.3 g/dL (31.0-37.0); MCV 90.9 fL (80.0-100.0); MEAN PLATELET VOLUME 9.6 fL (7.4-10.4); NEUTROPHILS 72.4 % (40-80); RBC 2.86 10x6/uL (4.00-5.40); RDW 13.8 % (11.5-14.5); WBC 8.9 10x3/uL (4.8-10.8)
[2017-12-24 05:19] LABS: PLATELET COUNT 194 10x3/uL (130-400)
[2017-12-24 05:24] LABS: ANION GAP 10.1 mmol/L (8-16); CALCIUM 8.1 mg/dL (8.5-10.1); CARBON DIOXIDE 26.3 mmol/L (21.0-32.0)
[2017-12-24 05:27] LABS: CREATININE - SERUM 1.4 mg/dL (0.6-1.3); POTASSIUM - SERUM 4.4 mmol/L (3.5-5.1)
[2017-12-24 08:19] VITALS: BP 150/53
[2017-12-24 12:34] VITALS: BP 147/30
[2017-12-24 13:02] VITALS: Ht 165.1 cm; Wt 104.3 kg
[2017-12-24 16:09] VITALS: BP 123/42
[2017-12-24 21:07] VITALS: BP 124/41
[2017-12-25 01:58] VITALS: BP 132/45
[2017-12-25 05:09] LABS: BASOPHILS 0.4 % (0-2); EOSINOPHILS 3.2 % (0-7); IMMATURE GRANULOCYTES 0.6 % (0-5); LYMPHOCYTES 13.4 % (15-50); MCH 29.4 pg (26.0-34.0); MCV 91.9 fL (80.0-100.0); MEAN PLATELET VOLUME 9.4 fL (7.4-10.4); MONOCYTES 11.8 % (2-11); NEUTROPHILS 70.6 % (40-80); PLATELET COUNT 208 10x3/uL (130-400); RBC 2.72 10x6/uL (4.00-5.40); WBC 7.1 10x3/uL (4.8-10.8)
[2017-12-25 05:24] VITALS: BP 159/64
[2017-12-25 05:24] LABS: ANION GAP 10.7 mmol/L (8-16); CALCIUM 8.7 mg/dL (8.5-10.1); CARBON DIOXIDE 25.7 mmol/L (21.0-32.0); CREATININE - SERUM 0.8 mg/dL (0.6-1.3); POTASSIUM - SERUM 4.4 mmol/L (3.5-5.1)
[2017-12-25 08:53] VITALS: BP 120/40
[2017-12-25 11:34] VITALS: BP 181/57
[2017-12-25 16:23] VITALS: BP 139/49
[2017-12-25 20:00] VITALS: BP 160/54
[2017-12-26] VITALS: BP 173/73
[2017-12-26 04:00] VITALS: BP 116/45
[2017-12-26 05:02] LABS: BASOPHILS 0.4 % (0-2); EOSINOPHILS 2.8 % (0-7); IMMATURE GRANULOCYTES 0.4 % (0-5); LYMPHOCYTES 9.7 % (15-50); MCH 29.2 pg (26.0-34.0); MCV 91.2 fL (80.0-100.0); MEAN PLATELET VOLUME 9.1 fL (7.4-10.4); MONOCYTES 10.3 % (2-11); NEUTROPHILS 76.4 % (40-80); PLATELET COUNT 243 10x3/uL (130-400); RBC 2.74 10x6/uL (4.00-5.40)
[2017-12-26 05:05] LABS: WBC 9.1 10x3/uL (4.8-10.8)
[2017-12-26 05:34] LABS: ANION GAP 13.1 mmol/L (8-16); CARBON DIOXIDE 25.2 mmol/L (21.0-32.0); POTASSIUM - SERUM 4.3 mmol/L (3.5-5.1)
[2017-12-26 08:24] VITALS: BP 164/60
[2017-12-26 12:10] VITALS: BP 150/62
[2017-12-26 16:39] VITALS: BP 177/83
[2017-12-26 22:35] VITALS: BP 190/64
[2017-12-27 01:02] VITALS: BP 186/72
[2017-12-27 06:04] LABS: BASOPHILS 0.5 % (0-2); EOSINOPHILS 2.8 % (0-7); HEMATOCRIT 25.1 % (36.0-48.0); HEMOGLOBIN 7.9 g/dL (12-16); IMMATURE GRANULOCYTES 0.4 % (0-5); LYMPHOCYTES 8.4 % (15-50); MCH 28.7 pg (26.0-34.0); MCHC 31.5 g/dL (31.0-37.0); MCV 91.3 fL (80.0-100.0); MEAN PLATELET VOLUME 9.1 fL (7.4-10.4); MONOCYTES 12.1 % (2-11); NEUTROPHILS 75.8 % (40-80); PLATELET COUNT 251 10x3/uL (130-400); RBC 2.75 10x6/uL (4.00-5.40); RDW 13.9 % (11.5-14.5)
[2017-12-27 06:09] VITALS: BP 192/68
[2017-12-27 06:26] LABS: CALC OSMOLALITY 277 mosm/kg (275-300); CALCIUM 7.9 mg/dL (8.5-10.1); CARBON DIOXIDE 26.7 mmol/L (21.0-32.0); CHLORIDE - SERUM 104 mmol/L (98-107); CREATININE - SERUM 0.7 mg/dL (0.6-1.3); GLUCOSE 122 mg/dL (74-106); POTASSIUM - SERUM 4.1 mmol/L (3.5-5.1); SODIUM 138 mmol/L (136-145); UREA NITROGEN 14 mg/dL (7-18); eGFR NON AFRICAN AMERICAN 87 mL/min (90-120)
[2017-12-27 08:26] VITALS: BP 201/85
[2017-12-27 13:42] VITALS: BP 168/67
[2017-12-27 16:40] VITALS: BP 189/63
[2017-12-27 23:40] VITALS: BP 165/62
[2017-12-28 05:23] LABS: BASOPHILS 0.4 % (0-2); EOSINOPHILS 3.3 % (0-7); HEMATOCRIT 25.5 % (36.0-48.0); HEMOGLOBIN 8.1 g/dL (12-16); IMMATURE GRANULOCYTES 0.4 % (0-5); LYMPHOCYTES 12.8 % (15-50); MCH 29.2 pg (26.0-34.0); MCHC 31.8 g/dL (31.0-37.0); MCV 92.1 fL (80.0-100.0); MEAN PLATELET VOLUME 8.8 fL (7.4-10.4); MONOCYTES 12.8 % (2-11); NEUTROPHILS 70.3 % (40-80); PLATELET COUNT 250 10x3/uL (130-400); RBC 2.77 10x6/uL (4.00-5.40); RDW 14.1 % (11.5-14.5); WBC 7.2 10x3/uL (4.8-10.8)
[2017-12-28 05:43] LABS: CALC OSMOLALITY 273 mosm/kg (275-300); CALCIUM 8.6 mg/dL (8.5-10.1); CARBON DIOXIDE 27.7 mmol/L (21.0-32.0); CHLORIDE - SERUM 104 mmol/L (98-107); CREATININE - SERUM 0.7 mg/dL (0.6-1.3); GLUCOSE 79 mg/dL (74-106); POTASSIUM - SERUM 3.9 mmol/L (3.5-5.1); SODIUM 138 mmol/L (136-145); eGFR NON AFRICAN AMERICAN 87 mL/min (90-120)
[2017-12-28 05:44] LABS: UREA NITROGEN 10 mg/dL (7-18)
[2017-12-28 06:13] VITALS: BP 120/64
[2017-12-28 08:33] VITALS: BP 178/50
[2017-12-28 23:07] VITALS: BP 141/80
[2017-12-29 05:23] VITALS: BP 140/83
[2017-12-29 06:43] LABS: BASOPHILS 0.2 % (0-2); EOSINOPHILS 3.6 % (0-7); HEMATOCRIT 28.2 % (36.0-48.0); HEMOGLOBIN 8.8 g/dL (12-16); IMMATURE GRANULOCYTES 0.5 % (0-5); LYMPHOCYTES 13.3 % (15-50); MCHC 31.2 g/dL (31.0-37.0); MCV 93.1 fL (80.0-100.0); MEAN PLATELET VOLUME 8.8 fL (7.4-10.4); MONOCYTES 12.1 % (2-11); NEUTROPHILS 70.3 % (40-80); PLATELET COUNT 269 10x3/uL (130-400); RBC 3.03 10x6/uL (4.00-5.40); RDW 14.1 % (11.5-14.5)
[2017-12-29 06:48] LABS: CALC OSMOLALITY 276 mosm/kg (275-300); CALCIUM 9.1 mg/dL (8.5-10.1); CARBON DIOXIDE 28.2 mmol/L (21.0-32.0); CHLORIDE - SERUM 102 mmol/L (98-107); CREATININE - SERUM 0.6 mg/dL (0.6-1.3); POTASSIUM - SERUM 4.2 mmol/L (3.5-5.1); SODIUM 138 mmol/L (136-145); UREA NITROGEN 11 mg/dL (7-18); eGFR NON AFRICAN AMERICAN > 90 mL/min (90-120)
[2017-12-29 06:49] LABS: GLUCOSE 126 mg/dL (74-106)
[2017-12-29 08:05] VITALS: BP 172/75
[2017-12-29 12:35] VITALS: BP 178/118
[2017-12-29 16:14] VITALS: BP 128/79
[2017-12-29 22:09] VITALS: BP 185/105
[2017-12-30 01:29] VITALS: BP 142/72
[2017-12-30 04:33] VITALS: BP 114/67
[2017-12-30 04:49] LABS: BASOPHILS 0.7 % (0-2); EOSINOPHILS 2.8 % (0-7); HEMATOCRIT 30.1 % (36.0-48.0); HEMOGLOBIN 9.5 g/dL (12-16); IMMATURE GRANULOCYTES 0.4 % (0-5); LYMPHOCYTES 13.3 % (15-50); MCHC 31.6 g/dL (31.0-37.0); MCV 91.8 fL (80.0-100.0); MEAN PLATELET VOLUME 9.2 fL (7.4-10.4); MONOCYTES 12.3 % (2-11); NEUTROPHILS 70.5 % (40-80); PLATELET COUNT 278 10x3/uL (130-400); RBC 3.28 10x6/uL (4.00-5.40); RDW 14.3 % (11.5-14.5); WBC 8.9 10x3/uL (4.8-10.8)
[2017-12-30 05:25] LABS: ALBUMIN 2.7 g/dL (3.4-5.0); ANION GAP 12.1 mmol/L (8-16); BILIRUBIN - TOTAL 1.8 mg/dL (0.2-1.3); CALCIUM 8.3 mg/dL (8.5-10.1); CARBON DIOXIDE 27.6 mmol/L (21.0-32.0); POTASSIUM - SERUM 4.7 mmol/L (3.5-5.1); PROTEIN - SERUM 6.1 g/dL (6.4-8.2)
[2017-12-30 05:26] LABS: CREATININE - SERUM 0.8 mg/dL (0.6-1.3)
[2017-12-30 07:57] VITALS: BP 165/100
[2017-12-30 13:07] VITALS: BP 117/53
[2017-12-30] MEDS ORDERED: MIRAPEX1 MG PO ×2 (15:38→15:39)
[2017-12-30] MEDS ORDERED: DIFLUCAN100 MG PO (15:38)
[2017-12-30] MEDS ORDERED: CORDARONE200 MG PO (15:38)
[2017-12-30] MEDS ORDERED: HUMULIN R100 U/ML SC (15:39)
[2017-12-30] MEDS ORDERED: NYSTATIN1 PWD TOPICAL (15:39)
[2017-12-30 16:18] VITALS: BP 150/101
[2017-12-30 20:00] VITALS: BP 134/83
[2017-12-31] VITALS: BP 147/85
[2017-12-31 04:00] VITALS: BP 169/115
[2017-12-31 06:34] LABS: BASOPHILS 0.7 % (0-2); EOSINOPHILS 1.8 % (0-7); HEMATOCRIT 31.4 % (36.0-48.0); HEMOGLOBIN 9.9 g/dL (12-16); IMMATURE GRANULOCYTES 0.4 % (0-5); LYMPHOCYTES 11.4 % (15-50); MCH 28.9 pg (26.0-34.0); MCHC 31.5 g/dL (31.0-37.0); MCV 91.5 fL (80.0-100.0); MEAN PLATELET VOLUME 8.8 fL (7.4-10.4); MONOCYTES 10.1 % (2-11); NEUTROPHILS 75.6 % (40-80); PLATELET COUNT 277 10x3/uL (130-400); RBC 3.43 10x6/uL (4.00-5.40); RDW 14.4 % (11.5-14.5); WBC 8.9 10x3/uL (4.8-10.8)
[2017-12-31 07:08] LABS: ALBUMIN 2.8 g/dL (3.4-5.0); ALKALINE PHOSPHATASE 89 U/L (46-116); ALT (SGPT) 22 U/L (10-68); BILIRUBIN - TOTAL 1.53 mg/dL (0.2-1.3); CALC OSMOLALITY 278 mosm/kg (275-300); CALCIUM 8.7 mg/dL (8.5-10.1); CARBON DIOXIDE 29.6 mmol/L (21.0-32.0); CHLORIDE - SERUM 102 mmol/L (98-107); CREATININE - SERUM 0.7 mg/dL (0.6-1.3); GLUCOSE 135 mg/dL (74-106); POTASSIUM - SERUM 4.4 mmol/L (3.5-5.1); PROTEIN - SERUM 6.2 g/dL (6.4-8.2); SODIUM 138 mmol/L (136-145); UREA NITROGEN 14 mg/dL (7-18); eGFR NON AFRICAN AMERICAN 87 mL/min (90-120)
[2017-12-31 07:30] VITALS: BP 186/87
[2017-12-31 13:03] VITALS: BP 167/77
[2017-12-31 15:43] VITALS: BP 174/65
[2018-01-01 03:10] LABS: OVA + PARASITE EXAM Final report (())
== END 2017-12-31 18:19 | DRG 248 ==
LOC: OBSVTIME → D.ER 05:45 → OBSVTIME 11:25 → D.ER 11:25 → D.EDHOLD 11:25 → D.MS 11:25 → D.EDHOLD 12:20 → D.MS 12:20 → D.M2 15:44 → D.SDCHOLD 12-24 12:55 → D.MS 12-24 12:55 → EDSTATUS 12-30 14:15 → D.MS 12-30 16:29 → D.M2 12-30 16:29 → D.MS 12-31 18:19
PROVIDERS: Emergency Medicine; Family Medicine; Internal Medicine Interventional Cardiology; Internal Medicine Nephrology
PROC: 4A023N7 Measurement of Cardiac Sampling and Pressure, Left Heart, Percutaneous Approach (ICD-10-PCS; 2017-12-30)
PROC: B2111ZZ Fluoroscopy of Multiple Coronary Arteries using Low Osmolar Contrast (ICD-10-PCS; 2017-12-30)
PROC: B2121ZZ Fluoroscopy of Single Coronary Artery Bypass Graft using Low Osmolar Contrast (ICD-10-PCS; 2017-12-30)
PROC: 02703DZ Dilation of Coronary Artery, One Artery with Intraluminal Device, Percutaneous Approach (ICD-10-PCS; principal; 2017-12-30 14:15)
PROC: 02703DZ Dilation of Coronary Artery, One Artery with Intraluminal Device, Percutaneous Approach (ICD-10-PCS; 2017-12-31 13:15)
DX: I25.110 Atherosclerotic heart disease of native coronary artery with unstable angina pectoris (principal); G93.41 Metabolic encephalopathy; N39.0 Urinary tract infection, site not specified; N17.9 Acute kidney failure, unspecified; E87.1 Hypo-osmolality and hyponatremia; D64.9 Anemia, unspecified; I48.91 Unspecified atrial fibrillation; I10 Essential (primary) hypertension; E78.5 Hyperlipidemia, unspecified; E11.9 Type 2 diabetes mellitus without complications; K21.9 Gastro-esophageal reflux disease without esophagitis; F32.9 Major depressive disorder, single episode, unspecified; F41.9 Anxiety disorder, unspecified; Z96.651 Presence of right artificial knee joint

== ENCOUNTER 2017-12-31 16:23 | Inpatient (IN) | payer MEDICARE, MEDICAID ==
[~2017-12-31] VITALS: Ht 165.1 cm; Wt 104.3 kg
--- NOTE | ~2017-12-31 | RHP ---
PATIENT: ELFEGO MONTEMAYOR MEDICAL RECORD: [id number] ACCOUNT: [id number] LOCATION:[facility]1113 : 45 ADMISSION DATE: 12/31/17 REHABILITATION HISTORY AND PHYSICAL EXAMINATION POST ADMISSION PHYSICIAN EXAMINATION POST-ADMISSION PHYSICAL EXAMINATION AND HISTORY AND PHYSICAL DATE OF ADMISSION: 12/31/2017 ADMISSION DIAGNOSIS: Uncontrolled atrial fibrillation. HISTORY OF PRESENT ILLNESS: The patient is a 72-year-old female patient admitted secondary to uncontrolled atrial fib requiring cardioversion. She has a history of hypertension, hyperlipidemia, diabetes, coronary artery disease, gastroesophageal reflux disease, depression, anxiety disorder. She came to the ER with complaints of unable to walk and weakness. The patient underwent a right knee replacement on Wednesday 12/20 at [facility] and discharged home on Wednesday. She felt that she could care for herself at home; however, this proved to be more difficult than she thought. She has now been admitted for further evaluation and treatment. She presented with generalized weakness. She has an extensive cardiac history. She was initially in a sinus rhythm. She is now reverted to atrial fib. She was placed on Cordarone, which had not been continued here. She was admitted on valsartan, carvedilol, Zetia, and Eliquis. Those were continued. Her cardiac history was positive for coronary artery bypass grafting, valve replacement with tissue prosthesis, and pacemaker. She had an ablation in 2015 secondary to atrial fib as well as cardioversion. She then had recurrent atrial fibrillation with recurrent ablation and cardioversion last year. She had been having chest pain and chest discomfort. She had some ST-T wave changes and rapid ventricular response. She was cardioverted in bed laborer and stented by Dr. Wang on 12/30. On 12/31, she had PTCA and 2 stents at left anterior descending diagonal through the SVG and a second cardioversion prior to her knee surgery. She was independent with ADLs and mobility with ambulation. Currently, mod or max assist for ADLs and max assist with ambulation and transfers. She required telemetry, electrolyte protocol during her rehab stay and intensive therapy to get her back to her prior level of functioning at home. COMORBIDITIES: Comorbidities in this patient include status post cardioversion times 2, acute kidney injury, normocytic anemia, UTI, hyponatremia, hypertension, hyperlipidemia, diabetes, coronary artery disease, depression, anxiety, new-onset AFib, aortic valve replacement, coronary artery disease, unstable angina, anticoagulation therapy, and chronic obstructive pulmonary disease. PAST MEDICAL HISTORY: Significant for cataracts, diabetes, hypertension, CO, right breast cancer, acid reflux, depression, anxiety, COPD. PAST SURGICAL HISTORY: Includes gallbladder surgery, knee surgery, back surgery, appendectomy, T&A, hysterectomy, open heart surgery, a simple mastectomy, and knee surgery. ALLERGIES: SULFA, CODEINE, OXYCODONE, AND TOPAMAX. CURRENT MEDICATIONS: Include Tylenol 1000 mg every 6 hours p.r.n., Effexor 75 HISTORY AND PHYSICAL [id number] KAEGEL,ELFEGO S mg daily, Diovan 80 mg daily, Mirapex 1 gram daily, Protonix 40 mg daily, Diflucan 150 mg daily, Zetia 10 mg daily, carvedilol 12.5 mg b.i.d. with meals, Mirapex 4 mg q. h.s., Nystatin powder topically b.i.d., on a low-resistant insulin sliding scale, Lantus 20 units b.i.d., Neurontin 300 mg b.i.d., BuSpar 10 mg b.i.d., Eliquis 2.5 mg b.i.d., amiodarone 400 mg b.i.d., Ventolin 2 puffs every 4 hours p.r.n., and MiraLax 17 grams in 8 ounces of water daily. HABITS: No alcohol or tobacco use. FAMILY HISTORY: Noncontributory. SOCIAL HISTORY: The patient hopes to return back home and get back to her prior level of functioning. REVIEW OF SYSTEMS: GENERAL: Does complain of weakness. HEENT: Denies cold, cough, or congestion. CARDIOVASCULAR: Denies chest pain. PHYSICAL EXAMINATION: VITAL SIGNS: Stable, afebrile. GENERAL: Morbidly obese female, in no acute distress upon exam. HEENT: Normocephalic and atraumatic. Mucosa moist. NECK: Supple. No lymphadenopathy. LUNGS: Clear at this time. HEART: Regular rate and rhythm. ABDOMEN: Benign. EXTREMITIES: Consistent with knee replacement. NEUROLOGIC: Intact. LABORATORY DATA: Her white count is 8.0, H&H of 9.4 and 29.8, her platelet count is noted to be 266. Sodium is 139, potassium 4.2, BUN and creatinine of 14 and 0.8, blood sugar is noted to be 122. ASSESSMENT: This is a 72-year-old female patient admitted to rehab with a working diagnosis of uncontrolled atrial fibrillation and also status post knee surgery. The patient has potential to make improvement. We will institute the following multidisciplinary therapies including, but not limited to physical, occupational, respiratory, speech, nutritional services, prosthetics and orthotics. Given her complex condition and risk for more complications, rehabilitation services cannot be provided at a low level of care such as a alf facility. PLAN: 1. Admit to [facility] for intensive inpatient therapy to include the following disciplines: A. Physical therapy to improve gait, all transfer skills and bed mobility to a modified independent level. B. Occupational therapy to improve activities of daily living to a modified independent level. C. Case management to assist with discharge planning and placement options. D. Nutrition to assist with nutritional needs. E. Rehabilitation nursing to assist in monitoring the patient's underlying medical conditions and to assist with any type of bowel or bladder management. 2. The patient's current medications and medical care will be continued. HISTORY AND PHYSICAL [id number] ELFEGO MONTEMAYOR 3. The patient will be placed on standard fall precautions. 4. The patient's estimated length of stay is approximately 7-10 days. 5. We will discuss this patient during care team staff meeting this week. TRANSINT:[id number] Voice Confirmation ID: [id number] DOCUMENT ID: [id number] GEORGE notes whether there has been none or any medical/functional change since admission: - No change since preadmission screen. GEORGE attests patient continues to be appropriate for IRF: - Continues to be appropriate. KENNETH HENDRIX MD at 1139 CC: [id number] DICTATION DATE: 01/01/18 1556 FINISHER WALLBOARD AND PLASTERBOARD: 01/01/182101 DIS IN 01/10/18 [facility] [address] [id number]
--- NOTE | ~2017-12-31 | DS ---
PATIENT:ELFEGO MONTEMAYOR :45 MEDICAL RECORD: [id number] DISCHARGE SUMMARY ADMISSION DATE: 12/31/17 DISCHARGE DATE: 01/10/18 This is a discharge dated 01/10/2018 from the inpatient rehabilitation. PRIMARY DIAGNOSES: Decreased functional ability and ability to provide activities of daily living secondary to uncontrolled atrial fibrillation. SECONDARY DIAGNOSES: 1. Status post knee surgery. 2. Skin infection of the leg. 3. [id number] respiratory failure. 4. Hypertension. 5. Hyperlipidemia. 6. Diabetes. 7. Coronary artery disease. 8. Gastroesophageal reflux disease. 9. Depression/anxiety. 10. History of permanent pacemaker. 11. Status post cardioversion times 2. 12. Acute kidney injury. 13. Anemia. 14. Urinary tract infection. 15. Hyponatremia. 16. Chronic obstructive pulmonary disease. 17. Cataracts. HOSPITAL COURSE: Full H&P is located elsewhere on the chart on this 72-year-old female who was admitted to inpatient rehab for physical therapy and occupational therapy to improve gait, transfer skills, bed mobility, and activities of daily living to a modified independent level. She was evaluated by PT and OT and their plans of care were followed. She required usp care for observation and assessment, medication administration as well as wound care and monitoring of surgical incisions. She remained on supplemental oxygen to keep sats greater than 92%. She had inhaled medications for respiratory support. She was on Diflucan for yeast infection and started on clindamycin for lower extremity skin infection. Her knee incision was healed and ford were removed during this hospital stay. Electrolytes were managed by protocol. Fingerstick blood sugars were monitored throughout her stay with appropriate adjustment in medications as needed. She was cooperative with therapies, progressing towards goals. Case management was involved for discharge planning. She was considered stable for discharge on 01/10/2018. DISCHARGE MEDICATIONS: As per discharge medication reconciliation. DISCHARGE DISPOSITION: The patient is discharged home. She will continue her current diet and level of activity. She will have home health for continued PT, OT and nursing care. She will follow up with specialists and primary care as directed. At least 30 minutes was spent in this discharge activity. TRANSINT:[id number] Voice Confirmation ID: [id number] DOCUMENT ID: [id number] DISCHARGE SUMMARY REPORT [id number] ELFEGO MONTEMAYOR Dictated By: FARRAH GRIJALVA I have interviewed/examined the above patient and agree with these documented findings. KENNETH HENDRIX MD at 1157 at 0940 CC: [id number] DICTATION DATE: 02/26/18 1229 RADAR SIGNAL PROCESSING ENGINEER: 02/27/18 0940 DIS IN 01/10/18 [facility] [address] [id number]
[~2017-12-31 16:23] MED LIST: BUSPAR10 MG PO; CORDARONE200 MG PO; COREG12.5 MG PO; DIFLUCAN100 MG PO; DIOVAN80 MG PO; EFFEXOR XR75 MG PO; ELIQUIS2.5 MG PO; HUMULIN R100 U/ML SC; LANTUS INSULIN10 ML SC; METOLAZONE5 MG PO; MIRAPEX1 MG PO; NEURONTIN 300300 MG PO; NOVOLOG FLEXPEN INJ; NYSTATIN1 PWD TOPICAL; OXYCODONE/ACETAMINOP; PROAIR HFA8.5 GM INH; PROTONIX40 MG PO; VICTOZA0.6 MG/0.1 SQ; ZANTAC300 MG PO; ZETIA10 MG PO
[2017-12-31 20:43] VITALS: BP 155/50
[2018-01-01 06:55] LABS: BASOPHILS 0.5 % (0-2); EOSINOPHILS 2.4 % (0-7); HEMATOCRIT 29.8 % (36.0-48.0); HEMOGLOBIN 9.4 g/dL (12-16); IMMATURE GRANULOCYTES 0.4 % (0-5); LYMPHOCYTES 13.8 % (15-50); MCH 28.9 pg (26.0-34.0); MCHC 31.5 g/dL (31.0-37.0); MCV 91.7 fL (80.0-100.0); MEAN PLATELET VOLUME 9.1 fL (7.4-10.4); MONOCYTES 10.3 % (2-11); NEUTROPHILS 72.6 % (40-80); PLATELET COUNT 266 10x3/uL (130-400); RBC 3.25 10x6/uL (4.00-5.40); RDW 14.4 % (11.5-14.5)
[2018-01-01 07:10] LABS: ANION GAP 9.4 mmol/L (8-16); CALCIUM 8.5 mg/dL (8.5-10.1); CARBON DIOXIDE 30.8 mmol/L (21.0-32.0); CREATININE - SERUM 0.8 mg/dL (0.6-1.3); POTASSIUM - SERUM 4.2 mmol/L (3.5-5.1)
[2018-01-01 08:59] VITALS: BP 171/76
[2018-01-01 19:21] VITALS: BP 195/75
[2018-01-02 09:46] VITALS: BP 209/83
[2018-01-02 14:00] VITALS: BP 168/58
[2018-01-02 19:14] VITALS: BP 189/74
[2018-01-03 07:08] LABS: BASOPHILS 0.8 % (0-2); EOSINOPHILS 5.5 % (0-7); HEMATOCRIT 31.3 % (36.0-48.0); HEMOGLOBIN 9.6 g/dL (12-16); IMMATURE GRANULOCYTES 0.4 % (0-5); LYMPHOCYTES 16.2 % (15-50); MCH 28.7 pg (26.0-34.0); MCHC 30.7 g/dL (31.0-37.0); MCV 93.7 fL (80.0-100.0); MEAN PLATELET VOLUME 9.1 fL (7.4-10.4); MONOCYTES 10.5 % (2-11); NEUTROPHILS 66.6 % (40-80); PLATELET COUNT 304 10x3/uL (130-400); RBC 3.34 10x6/uL (4.00-5.40); RDW 14.3 % (11.5-14.5); WBC 8.6 10x3/uL (4.8-10.8)
[2018-01-03 07:23] LABS: CALC OSMOLALITY 273 mosm/kg (275-300); CALCIUM 8.7 mg/dL (8.5-10.1); CARBON DIOXIDE 32.8 mmol/L (21.0-32.0); CHLORIDE - SERUM 99 mmol/L (98-107); CREATININE - SERUM 0.7 mg/dL (0.6-1.3); POTASSIUM - SERUM 3.9 mmol/L (3.5-5.1); SODIUM 139 mmol/L (136-145); UREA NITROGEN 8 mg/dL (7-18); eGFR NON AFRICAN AMERICAN 87 mL/min (90-120)
[2018-01-03 07:25] LABS: GLUCOSE 64 mg/dL (74-106)
[2018-01-03 08:00] VITALS: BP 188/56
[2018-01-03 16:50] VITALS: BP 173/61
[2018-01-03 20:00] VITALS: BP 151/76
[2018-01-04 08:17] VITALS: BP 186/71
[2018-01-04 14:21] VITALS: Ht 165.1 cm; Wt 104.3 kg
[2018-01-04 16:50] VITALS: BP 170/90
[2018-01-04 22:36] VITALS: BP 164/64
[2018-01-05 07:34] LABS: BASOPHILS 0.7 % (0-2); EOSINOPHILS 4.1 % (0-7); HEMATOCRIT 31.3 % (36.0-48.0); HEMOGLOBIN 9.5 g/dL (12-16); IMMATURE GRANULOCYTES 0.4 % (0-5); LYMPHOCYTES 19.4 % (15-50); MCH 28.5 pg (26.0-34.0); MCHC 30.4 g/dL (31.0-37.0); MEAN PLATELET VOLUME 9.3 fL (7.4-10.4); MONOCYTES 8.1 % (2-11); NEUTROPHILS 67.3 % (40-80); PLATELET COUNT 256 10x3/uL (130-400); RBC 3.33 10x6/uL (4.00-5.40); RDW 14.3 % (11.5-14.5); WBC 6.8 10x3/uL (4.8-10.8)
[2018-01-05 07:39] LABS: ANION GAP 6.4 mmol/L (8-16); CALCIUM 8.6 mg/dL (8.5-10.1); CARBON DIOXIDE 35.1 mmol/L (21.0-32.0); CREATININE - SERUM 0.9 mg/dL (0.6-1.3); POTASSIUM - SERUM 4.5 mmol/L (3.5-5.1)
[2018-01-05 08:00] VITALS: BP 202/74
[2018-01-05 08:39] VITALS: BP 199/88
[2018-01-05 16:27] VITALS: BP 190/68
[2018-01-06 01:28] VITALS: BP 166/73
[2018-01-06 08:11] VITALS: BP 179/66
[2018-01-06 20:45] VITALS: BP 136/60
[2018-01-07 08:54] VITALS: BP 192/75
[2018-01-07 19:40] VITALS: BP 162/72
[2018-01-08 09:36] VITALS: BP 153/66
[2018-01-08 16:14] VITALS: BP 178/84
[2018-01-08 20:00] VITALS: BP 163/84
[2018-01-09 07:52] VITALS: BP 174/55
[2018-01-10 07:30] VITALS: BP 148/78
[2018-01-10] MEDS ORDERED: NORVASC5 MG PO (14:47)
[2018-01-10] MEDS ORDERED: CLEOCIN HCL300 MG PO (14:53)
== END 2018-01-10 17:35 | disposition home health service (06) | DRG 309 ==
LOC: D.REHAB 16:23
PROVIDERS: Emergency Medicine
DX: I48.91 Unspecified atrial fibrillation (principal); N17.9 Acute kidney failure, unspecified; N39.0 Urinary tract infection, site not specified; E87.1 Hypo-osmolality and hyponatremia; I25.110 Atherosclerotic heart disease of native coronary artery with unstable angina pectoris; D64.9 Anemia, unspecified; I10 Essential (primary) hypertension; E78.5 Hyperlipidemia, unspecified; E11.9 Type 2 diabetes mellitus without complications; F41.8 Other specified anxiety disorders; J44.9 Chronic obstructive pulmonary disease, unspecified; Z79.01 Long term (current) use of anticoagulants; Z96.651 Presence of right artificial knee joint